=== PATIENT | female | born 1995 | race Two or more races ===

== ENCOUNTER 2020-07-31 11:34 | Inpatient (IN) | payer MEDICAID ==
[~2020-07-31] VITALS: Ht 165.1 cm; Wt 67.6 kg
[2020-07-31] MEDS ORDERED: ONDANSETRON HCL 4MG/2ML INJ IV STA ×2 (12:04→12:28)
[2020-07-31] MEDS ORDERED: SODIUM CHLORIDE 0.9% 1,000 ML IV ONE ×2 (12:15→12:30)
[2020-07-31 12:28] LABS: BASOPHILS % 0.4 % (0.0-2.0); EOSINOPHILS % 0.3 % (0.0-5.0); HEMATOCRIT. 45.8 % (36.0-48.0); HEMOGLOBIN. 15.4 g/dL (12.0-16.0); MEAN CORPUSCULAR HEMOGLOBIN 31.1 pg (28.0-32.0); MEAN CORPUSCULAR VOLUME 92.5 fL (81.0-99.0); MEAN PLATELET VOLUME 9.6 fl (7.4-10.4); MONOCYTES % 9.5 % (2.0-8.0); NEUTROPHILS % 63.8 % (40.0-76.0); PLATELET 195 x1000/uL (130-400); RED BLOOD CELL COUNT 4.95 mill/uL (4.2-5.4); RED CELL DISTRIBUTION WIDTH 14.2 % (11.6-14.6)
[2020-07-31] MEDS ORDERED: MORPHINE SULFATE 4 MG/ML CPJ (NOT FOR IM USE) IV STA (12:28)
[2020-07-31 12:35] LABS: CHLORIDE 107 mEq/L (98-107)
[2020-07-31 12:45] LABS: PROTHROMBIN TIME 10.9 sec (9.6-11.0)
[2020-07-31 13:00] LABS: HCG SCREEN NEGATIVE
[2020-07-31 15:46] LABS: CLARITY URINE CLEAR (CLEAR); COLOR URINE YELLOW (YELLOW); KETONES URINE 2+ (NEGATIVE); LEUKOCYTE ESTERASE URINE NEGATIVE (NEGATIVE); NITRITE URINE NEGATIVE (NEGATIVE); OCCULT BLOOD URINE NEGATIVE (NEGATIVE); PH URINE 7.5 (4.5-8.0); PROTEIN URINE NEGATIVE (NEGATIVE); SPECIFIC GRAVITY URINE 1.038 (1.005-1.030); UROBILINOGEN URINE 0.2 E.U./dL (0.2-1.0)
[2020-07-31] MEDS ORDERED: CEFTRIAXONE 1 G PREMIX 50 ML IV ONE (16:00)
[2020-07-31] MEDS ORDERED: METRONIDAZOLE 500 MG PREMIX 100 ML IV ONE (16:00)
[2020-07-31] MEDS ORDERED: MORPHINE SULFATE 4 MG/ML CPJ (NOT FOR IM USE) IV ONE ×2 (16:15→20:30)
[2020-07-31] MEDS ORDERED: IOHEXOL-300 100 ML BOTTLE ONE (16:45)
[2020-07-31] MEDS ORDERED: MORPHINE SULFATE 2 MG/ML CPJ (NOT FOR IM USE) IV PRN (23:46)
[2020-08-01 02:09] VITALS: BP 114/64
[2020-08-01 04:00] VITALS: BP 114/64
[2020-08-01 08:00] VITALS: BP 123/73
[2020-08-01] MEDS ORDERED: HYDROCODONE/ACETAMINOPHEN 5/325MG TABLET PO PRN (09:15)
[2020-08-01] MEDS ORDERED: CLONIDINE 0.1MG TABLET PO PRN (09:15)
[2020-08-01] MEDS ORDERED: IPRATROPIUM/ALBUTEROL 0.5-3(2.5)MG/3ML NEB HHN PRN (09:15)
[2020-08-01] MEDS ORDERED: ACETAMINOPHEN 325MG TABLET PO PRN ×2 (09:15)
[2020-08-01] MEDS ORDERED: CEFTRIAXONE 1 G PREMIX 50 ML IV SCH (09:15)
[2020-08-01] MEDS ORDERED: LORAZEPAM 0.5MG TABLET PO PRN (09:15)
[2020-08-01] MEDS: SODIUM CHLORIDE 0.9% 1,000 ML IV SCH ×2 (09:58→22:35)
[2020-08-01] MEDS: MORPHINE SULFATE 2 MG/ML CPJ (NOT FOR IM USE) IV PRN ×2 (10:08→16:19)
[2020-08-01] MEDS: METRONIDAZOLE 500 MG PREMIX 100 ML IV SCH ×2 (10:12→17:17)
[2020-08-01 12:20] LABS: BASOPHILS % 0.4 % (0.0-2.0); EOSINOPHILS % 0.2 % (0.0-5.0); HEMATOCRIT. 39.6 % (36.0-48.0); HEMOGLOBIN. 13.5 g/dL (12.0-16.0); LYMPHOCYTES % 26.5 % (20.0-50.0); MEAN CORPUSCULAR HEMOGLOBIN 31.1 pg (28.0-32.0); MEAN CORPUSCULAR VOLUME 91.2 fL (81.0-99.0); MEAN PLATELET VOLUME 9.6 fl (7.4-10.4); MONOCYTES % 10.1 % (2.0-8.0); NEUTROPHILS % 62.8 % (40.0-76.0); PLATELET 159 x1000/uL (130-400); RED BLOOD CELL COUNT 4.34 mill/uL (4.2-5.4); RED CELL DISTRIBUTION WIDTH 14.2 % (11.6-14.6)
[2020-08-01 12:32] LABS: CHLORIDE 108 mEq/L (98-107)
[2020-08-01] MEDS: PANTOPRAZOLE SODIUM 40 MG/VIAL IV SCH (13:21)
[2020-08-01 13:31] LABS: *AMPHETAMINES SCREEN URINE NEGATIVE (NEGATIVE); *BARBITURATES SCREEN URINE NEGATIVE (NEGATIVE); *BENZODIAZEPINES SCREEN URINE NEGATIVE (NEGATIVE); *COCAINE SCREEN URINE NEGATIVE (NEGATIVE); METHADONE URINE SCREEN NEGATIVE (NEGATIVE)
[2020-08-01 13:32] LABS: PHENCYCLIDINE URINE SCREEN NEGATIVE (NEGATIVE)
[2020-08-01 13:38] LABS: CANNABINOID URINE SCREEN PRESUMTIVE POSITIVE (NEGATIVE); OPIATES URINE SCREEN PRESUMTIVE POSITIVE (NEGATIVE)
[2020-08-01] MEDS ORDERED: POTASSIUM CHLORIDE 20MEQ TABLET SR PO NR (16:00)
[2020-08-01] MEDS: CEFTRIAXONE 1,000 MG in DEXTROSE 5% WATER 50 ML IV SCH (16:08)
[2020-08-01 16:37] VITALS: BP 112/60
[2020-08-01 20:00] VITALS: BP 108/64
[2020-08-02] VITALS: BP 120/68
[2020-08-02] MEDS: METRONIDAZOLE 500 MG PREMIX 100 ML IV SCH ×3 (03:51→17:32)
[2020-08-02 04:00] VITALS: BP 124/71
[2020-08-02 08:00] VITALS: BP 122/77
[2020-08-02] MEDS: PANTOPRAZOLE SODIUM 40 MG/VIAL IV SCH (08:54)
[2020-08-02] MEDS: MORPHINE SULFATE 2 MG/ML CPJ (NOT FOR IM USE) IV PRN ×3 (09:02→23:58)
[2020-08-02 12:00] VITALS: BP 108/58
[2020-08-02] MEDS: SODIUM CHLORIDE 0.9% 1,000 ML IV SCH (13:01)
[2020-08-02 16:00] VITALS: BP 119/69
[2020-08-02 16:19] LABS: BASOPHILS % 0.9 % (0.0-2.0); EOSINOPHILS % 0.1 % (0.0-5.0); HEMATOCRIT. 39.6 % (36.0-48.0); HEMOGLOBIN. 13.5 g/dL (12.0-16.0); LYMPHOCYTES % 27.2 % (20.0-50.0); MEAN CORPUSCULAR HEMOGLOBIN 31.3 pg (28.0-32.0); MEAN CORPUSCULAR VOLUME 91.9 fL (81.0-99.0); MEAN PLATELET VOLUME 10.1 fl (7.4-10.4); MONOCYTES % 8.5 % (2.0-8.0); NEUTROPHILS % 63.3 % (40.0-76.0); PLATELET 148 x1000/uL (130-400); RED BLOOD CELL COUNT 4.31 mill/uL (4.2-5.4); RED CELL DISTRIBUTION WIDTH 14.1 % (11.6-14.6)
[2020-08-02 16:28] LABS: CHLORIDE 108 mEq/L (98-107)
[2020-08-02] MEDS: CEFTRIAXONE 1,000 MG in DEXTROSE 5% WATER 50 ML IV SCH (16:28)
[2020-08-02 20:00] VITALS: BP 112/66
[2020-08-03] VITALS: BP 119/75
[2020-08-03] MEDS: SODIUM CHLORIDE 0.9% 1,000 ML IV SCH ×2 (01:15→14:50)
[2020-08-03] MEDS: METRONIDAZOLE 500 MG PREMIX 100 ML IV SCH ×3 (02:27→17:05)
[2020-08-03 04:00] VITALS: BP 100/56
[2020-08-03 08:00] VITALS: BP 100/60
[2020-08-03] MEDS: PANTOPRAZOLE SODIUM 40 MG/VIAL IV SCH (09:30)
[2020-08-03 10:00] LABS: BASOPHILS % 0.4 % (0.0-2.0); EOSINOPHILS % 0.5 % (0.0-5.0); HEMOGLOBIN. 13.5 g/dL (12.0-16.0); MEAN CORPUSCULAR HEMOGLOBIN 30.9 pg (28.0-32.0); MEAN CORPUSCULAR VOLUME 91.7 fL (81.0-99.0); MEAN PLATELET VOLUME 9.6 fl (7.4-10.4); MONOCYTES % 11.7 % (2.0-8.0); NEUTROPHILS % 55.4 % (40.0-76.0); PLATELET 151 x1000/uL (130-400); RED BLOOD CELL COUNT 4.36 mill/uL (4.2-5.4); RED CELL DISTRIBUTION WIDTH 13.9 % (11.6-14.6)
[2020-08-03 10:08] LABS: CHLORIDE 108 mEq/L (98-107)
[2020-08-03 10:09] LABS: SACCHAROMYCES CEREVISIAE IGG <20.0 Units (0.0-24.9); SACCHAROMYCES CEREVISIAE IGM <20.0 Units (0.0-24.9)
[2020-08-03 12:00] VITALS: BP 108/68
[2020-08-03] MEDS: MORPHINE SULFATE 2 MG/ML CPJ (NOT FOR IM USE) IV PRN (13:21)
[2020-08-03 14:08] LABS: ATYPICAL pANCA <1:20 titer (Neg:<1:20)
[2020-08-03] MEDS: ONDANSETRON HCL 4MG/2ML INJ IV PRN (14:49)
[2020-08-03 16:00] VITALS: BP 120/72
[2020-08-03] MEDS: CEFTRIAXONE 1,000 MG in DEXTROSE 5% WATER 50 ML IV SCH (17:05)
[2020-08-03 20:00] VITALS: BP 125/72
[2020-08-04] VITALS: BP 120/75
[2020-08-04] MEDS: ONDANSETRON HCL 4MG/2ML INJ IV PRN ×3 (00:09→16:17)
[2020-08-04] MEDS: METRONIDAZOLE 500 MG PREMIX 100 ML IV SCH ×2 (02:15→10:15)
[2020-08-04] MEDS: SODIUM CHLORIDE 0.9% 1,000 ML IV SCH (03:55)
[2020-08-04 04:00] VITALS: BP 128/68
[2020-08-04 05:55] LABS: BASOPHILS % 0.5 % (0.0-2.0); EOSINOPHILS % 0.4 % (0.0-5.0); HEMOGLOBIN. 13.7 g/dL (12.0-16.0); LYMPHOCYTES % 26.4 % (20.0-50.0); MEAN CORPUSCULAR HEMOGLOBIN 30.7 pg (28.0-32.0); MEAN CORPUSCULAR VOLUME 91.8 fL (81.0-99.0); MEAN PLATELET VOLUME 10.3 fl (7.4-10.4); MONOCYTES % 11.8 % (2.0-8.0); NEUTROPHILS % 60.9 % (40.0-76.0); PLATELET 158 x1000/uL (130-400); RED BLOOD CELL COUNT 4.46 mill/uL (4.2-5.4); RED CELL DISTRIBUTION WIDTH 13.7 % (11.6-14.6)
[2020-08-04 06:20] LABS: CHLORIDE 106 mEq/L (98-107)
[2020-08-04 08:00] VITALS: BP 100/43
[2020-08-04] MEDS: PANTOPRAZOLE SODIUM 40 MG/VIAL IV SCH (10:14)
[2020-08-04 12:00] VITALS: BP 112/65
[2020-08-04] MEDS ORDERED: PANT20TA3 MT (13:17)
[2020-08-04] MEDS ORDERED: TOPUD PO (13:17)
[2020-08-04] MEDS ORDERED: ONDA4TAB11 PO (13:17)
[2020-08-04 16:00] VITALS: BP 126/78
[2020-08-04] MEDS: CEFTRIAXONE 1,000 MG in DEXTROSE 5% WATER 50 ML IV SCH (16:17)
[2020-08-04 16:56] VITALS: BP 126/78
[2020-08-22 12:26] LABS: OVA & PARASITE EXAM Final report (.)
== END 2020-08-04 17:22 | disposition home or self-care (01) | DRG 249 ==
LOC: ER 11:34 → MICUSO 20:23 → EDBEDREQTM 20:30 → EDBEDREQ 20:30 → 6EST 08-01 01:17
PROVIDERS: ADMIT Internal Medicine; ATTEND Internal Medicine
DX: K52.9 Noninfective gastroenteritis and colitis, unspecified (principal); E87.6 Hypokalemia; D72.821 Monocytosis (symptomatic); R00.1 Bradycardia, unspecified; K21.9 Gastro-esophageal reflux disease without esophagitis; F12.929 Cannabis use, unspecified with intoxication, unspecified; F11.90 Opioid use, unspecified, uncomplicated; D72.829 Elevated white blood cell count, unspecified; F17.200 Nicotine dependence, unspecified, uncomplicated; Z72.89 Other problems related to lifestyle; K66.8 Other specified disorders of peritoneum
CPT/HCPCS: 36415; 74177; 76700; 80048; 80053; 80305; 81003; 82270; 82705; 83605; 83735; 84703; 85025; 86256; 86671; 87015; 87045; 87177; 87209; 87427; 87449; 87493; 89055; 93005; 96374; 99285; C9113; J0696; J2270; J2405; J3490; J7030; J7060; Q9967

== ENCOUNTER 2021-08-07 06:30 | Inpatient (IN) | payer MEDICAID ==
[~2021-08-07] VITALS: Ht 152.4 cm; Wt 66.2 kg
[~2021-08-07 06:30] MED LIST: ONDA4TAB11 PO; PANT20TA17 MT; TOPUD PO
[2021-08-07] MEDS ORDERED: DEXT 5%/LR + PITOCIN 20UNITS/L 1,000 ML IV SCH ×2 (07:15→20:30)
[2021-08-07] MEDS ORDERED: BUTORPHANOL TARTRATE 2 MG/ML VIAL IV PRN (07:15)
[2021-08-07] MEDS ORDERED: RHO(D) IMMUNE GLOBULIN 300 MCG/SYR IM ONE (07:15)
[2021-08-07] MEDS ORDERED: LIDOCAINE HCL 1% 20ML VIAL (Pyxis) INJ INFIL SCH (07:15)
[2021-08-07] MEDS ORDERED: ASPI-1497 PO (07:18)
[2021-08-07] MEDS ORDERED: PNV1TABL76 MT (07:18)
[2021-08-07] MEDS ORDERED: NALOXONE HCL 0.4 MG/ML 1ML VIAL IM PRN (07:45)
[2021-08-07] MEDS ORDERED: CARBOPROST TROMETHAMINE 250 MCG/ML AMPUL IM PRN (07:45)
[2021-08-07] MEDS ORDERED: METHYLERGONOVINE MALEATE 0.2 MG/ML IM PRN (07:45)
[2021-08-07] MEDS: LACTATED RINGERS 1,000 ML IV SCH ×2 (07:49→11:05)
[2021-08-07] MEDS ORDERED: PENICILLIN G POTASSIUM 5 MMU in DEXT 5% WATER 100 ML IV SCH (08:00)
[2021-08-07 09:24] LABS: BASOPHILS % 0.4 % (0.0-2.0); EOSINOPHILS % 0.3 % (0.0-5.0); HEMATOCRIT. 33.8 % (36.0-48.0); HEMOGLOBIN. 11.2 g/dL (12.0-16.0); LYMPHOCYTES % 19.9 % (20.0-50.0); MEAN CORPUSCULAR HEMOGLOBIN 29.1 pg (28.0-32.0); MEAN CORPUSCULAR VOLUME 87.7 fL (81.0-99.0); MEAN PLATELET VOLUME 11.1 fl (7.4-10.4); MONOCYTES % 10.9 % (2.0-8.0); NEUTROPHILS % 68.5 % (40.0-76.0); PLATELET 143 x1000/uL (130-400); RED BLOOD CELL COUNT 3.85 mill/uL (4.2-5.4); RED CELL DISTRIBUTION WIDTH 15.8 % (11.6-14.6)
[2021-08-07 09:33] LABS: INR 0.9; PARTIAL THROMBOPLASTIN TIME 28.8 sec (23.4-31.0); PROTHROMBIN TIME 9.9 sec (9.6-11.0)
[2021-08-07] MEDS ORDERED: ROPIVACAINE HCL/PF EPIDURAL 200 ML EPI SCH (11:00)
[2021-08-07] MEDS ORDERED: PENICILLIN G POTASSIUM 2.5 MMU in DEXTROSE 5% WATER 50 ML IV SCH (12:00)
[2021-08-07 16:29] LABS: HEPATITIS B SURFACE ANTIGEN NEGATIVE
[2021-08-07] MEDS ORDERED: ONDANSETRON HCL 4MG/2ML INJ IV SCH (18:30)
[2021-08-07] MEDS ORDERED: ONDANSETRON HCL 4MG/2ML INJ ONE (18:37)
[2021-08-07] MEDS ORDERED: BENZOCAINE/LANOLIN/ALOE VERA SPRAY TOP PRN (20:30)
[2021-08-07] MEDS ORDERED: IBUPROFEN 400MG TABLET PO PRN (20:30)
[2021-08-07] MEDS ORDERED: RHO(D) IMMUNE GLOBULIN 300 MCG/SYR IM PRN (20:30)
[2021-08-07] MEDS: IBUPROFEN 800MG TABLET PO PRN (21:20)
[2021-08-07 22:30] VITALS: BP 116/56
[2021-08-08 04:00] VITALS: BP 111/62
[2021-08-08] MEDS: IBUPROFEN 800MG TABLET PO PRN ×2 (05:16→21:33)
[2021-08-08 06:53] LABS: BASOPHILS % 0.2 % (0.0-2.0); EOSINOPHILS % 0.1 % (0.0-5.0); HEMATOCRIT. 27.7 % (36.0-48.0); HEMOGLOBIN. 9.1 g/dL (12.0-16.0); LYMPHOCYTES % 14.8 % (20.0-50.0); MEAN CORPUSCULAR HEMOGLOBIN 29.3 pg (28.0-32.0); MEAN CORPUSCULAR VOLUME 89.3 fL (81.0-99.0); MEAN PLATELET VOLUME 10.3 fl (7.4-10.4); MONOCYTES % 13.4 % (2.0-8.0); NEUTROPHILS % 71.5 % (40.0-76.0); PLATELET 107 x1000/uL (130-400); RED CELL DISTRIBUTION WIDTH 15.6 % (11.6-14.6)
[2021-08-08 08:00] VITALS: BP 105/48
[2021-08-08] MEDS: PRENATAL VIT/FE FUMARATE/FA TABLET PO SCH (13:09)
[2021-08-08] MEDS: FERROUS SULFATE 325MG TABLET PO SCH (13:09)
[2021-08-08 13:33] LABS: *AMPHETAMINES SCREEN URINE NEGATIVE (NEGATIVE); *BARBITURATES SCREEN URINE NEGATIVE (NEGATIVE)
[2021-08-08 13:34] LABS: *BENZODIAZEPINES SCREEN URINE NEGATIVE (NEGATIVE); *COCAINE SCREEN URINE NEGATIVE (NEGATIVE); METHADONE URINE SCREEN NEGATIVE (NEGATIVE); OPIATES URINE SCREEN NEGATIVE (NEGATIVE); PHENCYCLIDINE URINE SCREEN NEGATIVE (NEGATIVE)
[2021-08-08 13:36] LABS: CANNABINOID URINE SCREEN PRESUMTIVE POSITIVE (NEGATIVE)
[2021-08-08 13:39] LABS: CLARITY URINE CLOUDY (CLEAR); COLOR URINE RED (YELLOW); SPECIFIC GRAVITY URINE 1.008 (1.005-1.030)
[2021-08-08 13:40] LABS: KETONES URINE NEGATIVE (NEGATIVE); NITRITE URINE NEGATIVE (NEGATIVE); OCCULT BLOOD URINE 3+ (NEGATIVE); PH URINE 7.5 (4.5-8.0); PROTEIN URINE 2+ (NEGATIVE)
[2021-08-08 13:41] LABS: LEUKOCYTE ESTERASE URINE 1+ (NEGATIVE)
[2021-08-08 16:45] VITALS: BP 112/62
[2021-08-08 22:00] VITALS: BP 123/69
[2021-08-09 06:13] VITALS: BP 131/74
[2021-08-09 06:59] LABS: BASOPHILS % 0.4 % (0.0-2.0); EOSINOPHILS % 0.8 % (0.0-5.0); HEMATOCRIT. 27.8 % (36.0-48.0); HEMOGLOBIN. 9.1 g/dL (12.0-16.0); LYMPHOCYTES % 28.7 % (20.0-50.0); MEAN CORPUSCULAR HEMOGLOBIN 29.5 pg (28.0-32.0); MEAN CORPUSCULAR VOLUME 89.8 fL (81.0-99.0); MONOCYTES % 9.8 % (2.0-8.0); NEUTROPHILS % 60.3 % (40.0-76.0); PLATELET 118 x1000/uL (130-400); RED CELL DISTRIBUTION WIDTH 15.9 % (11.6-14.6)
[2021-08-09 08:00] VITALS: BP 133/59
[2021-08-09] MEDS: FERROUS SULFATE 325MG TABLET PO SCH (09:46)
[2021-08-09 09:47] VITALS: BP 131/74
[2021-08-09] MEDS: IBUPROFEN 800MG TABLET PO PRN (09:47)
[2021-08-09] MEDS: PRENATAL VIT/FE FUMARATE/FA TABLET PO SCH (09:47)
[2021-08-19 13:07] LABS: CANNABINOID CONFIRMATION URINE Positive (.)
== END 2021-08-09 18:15 | disposition home or self-care (01) | DRG 560 ==
LOC: 8 EST LDRP 06:30 → OBSVTOIN 06:30 → 8EST 22:30
PROVIDERS: ADMIT Obstetrics & Gynecology; ATTEND Obstetrics & Gynecology
PROC: 10E0XZZ Delivery of Products of Conception, External Approach (ICD-10-PCS; principal; 2021-08-07)
PROC: 0W8NXZZ Division of Female Perineum, External Approach (ICD-10-PCS; 2021-08-07)
PROC: 3E0R3BZ Introduction of Anesthetic Agent into Spinal Canal, Percutaneous Approach (ICD-10-PCS; 2021-08-07)
PROC: 00HU33Z Insertion of Infusion Device into Spinal Canal, Percutaneous Approach (ICD-10-PCS; 2021-08-07)
DX: O77.0 Labor and delivery complicated by meconium in amniotic fluid (principal); Z37.0 Single live birth; O69.81X0 Labor and delivery complicated by cord around neck, without compression, not applicable or unspecified; Z20.822 Contact with and (suspected) exposure to COVID-19; Z3A.40 40 weeks gestation of pregnancy
CPT/HCPCS: 36415; 76805; 76818; 80305; 80349; 81003; 85025; 86592; 86703; 86762; 86850; 86900; 87340; 87426; 99281; G0378; J2405; J2540; J2590; J2795; J3490; J7060; J7120